=== PATIENT | female | born 1955 | race Hispanic/Latino ===

== ENCOUNTER 2024-09-25 06:18 | Day surgery (SDC) | payer OTHER ==
[2024-09-22 14:50] LABS: Absolute Lymphocytes (CBC) 1.9 K/uL (0.7-4.9); Hematocrit 46.9 % (36.0-45.0); Hemoglobin 15.7 g/dL (12.0-15.0); MCH 29.5 pg (27.0-35.0); MCHC 33.5 g/dL (32.0-36.0); MCV 88.0 fL (80-100); MPV 8.7 fL (7.6-11.3); Nucleated RBC Absolute Count 0.0 (0-0); Nucleated Red Blood Cells % 0.1 % (0-0); RBC Red Blood Cell Count 5.33 M/uL (3.86-4.86); White Blood Count 7.90 thou/uL (4.3-10.9)
[2024-09-22 15:05] LABS: Anion Gap 9.4 mEq/L (5.0-15.0); BUN Blood Urea Nitrogen 18.0 mg/dL (7-18); Glucose Level 301.0 mg/dL (74-106); Potassium 3.4 mEq/L (3.5-5.1)
[2024-09-25] MEDS: NA CHLORIDE 0.9% 1,000 ML ONE (06:40)
[2024-09-25] MEDS ORDERED: LIDOCAINE 1% MPF 5 ML VIAL ONE (07:15)
[2024-09-25 08:55] VITALS: TEMP 97
[2024-09-25 09:37] VITALS: BP 120/61; O2SAT 98
== END 2024-09-25 09:15 | disposition home or self-care (01) ==
LOC: OR 06:18
PROVIDERS: ATTEND Surgery
PROC: 0DJD8ZZ Inspection of Lower Intestinal Tract, Via Natural or Artificial Opening Endoscopic (ICD-10-PCS; principal; 2024-09-25 08:00)
DX: Z12.11 Encounter for screening for malignant neoplasm of colon (principal); K57.30 Diverticulosis of large intestine without perforation or abscess without bleeding; K64.8 Other hemorrhoids
CPT/HCPCS: 93005; 85025; 80048; 36415; 82947; J2704; J2003; J7030